=== PATIENT | male | born 1940 | race Caucasian/White ===

== ENCOUNTER 2025-07-09 06:33 | Emergency (ER) | payer OTHER ==
[~2025-07-09] VITALS: Ht 170.2 cm; Wt 72.6 kg
[2025-07-09] MEDS ORDERED: LIDOCAINE 1%-EPI 1:100,000 20 ML VIAL IJ SCH (07:00)
--- NOTE | 2025-07-09 07:14 | NUR ---
ASSUMED PATIENT CARE FROM MAGED LOYOLA AT THIS TIME./ARIELLA
--- NOTE | 2025-07-09 07:17 | NUR ---
DR. MOISE AT BEDSIDE DOING LACERATION REPAIR, PATIENT TOLERATING WELL./ARIELLA
[2025-07-09] MEDS: LIDOCAINE HCL 1% 20 ML VIAL ONE (07:18)
--- NOTE | 2025-07-09 07:32 | ERN ---
General Chief Complaint: Mechanical Fall Stated Complaint: FALL Time Seen by MD: 06:40 Source: patient History of Present Illness Initial Comments Patient is an 84-year-old gentleman coming in after he had a trip and a fall. Per patient he was walking tripped fell down hitting himself in the left side of his head. He did not lose consciousness. He did cause a laceration to the left frontal area of his head. No other current complaint Allergies: Coded Allergies: No Known Drug Allergies (Unverified Allergy, Unknown, 07/09/25) Past Medical History Past Medical History: High Cholesterol, Unknown Past Surgical History: None ROS Dictation CONSTITUTIONAL: No chills, no fever, no weakness, no diaphoresis, no malaise. HEAD/FACE: No signs of trauma. EENT: No eye pain, no blurred vision, no tearing, no double vision, no ear pain, no ear discharge, no nose pain, no nasal congestion, no throat pain, no throat swelling, no mouth pain. RESPIRATORY: No cough, no orthopnea, no SOB, no stridor, no wheezing. CARDIOVASCULAR: No chest pain, no edema, no palpitations, no syncope. GASTROINTESTINAL/ABDOMINAL: No abdominal pain, no constipation, no diarrhea, no nausea, no vomiting. GENITOURINARY: No abnormal discharge, no dysuria, no frequent urination, no hematuria. No complaints of pain in the genitals. MUSCULOSKELETAL: No back pain, no gout, no joint pain, no joint swelling, no muscle pain, no muscle stiffness, no neck pain. INTEGUMENTARY: No change in color, no change in hair/nails, no dryness, lesion, no lumps, no rash. NEUROLOGICAL/PSYCH: No anxiety, not depressed, no emotional problem, no headache, no numbness, no pre-existing deficit, no history of seizures, no tremors, no weakness. HEMATOLOGIC/LYMPHATIC: Not anemic, no history of blood clots, no apparent bleeding, no bruising, glands not swollen. All Systems Negative, Except as Noted. Physical Exam Physical Exam Dictation VITAL SIGNS: Reviewed. GENERAL APPEARANCE: Alert, oriented x3, no acute distress, obese. HEAD AND FACE: Non-traumatic. EYES: PERRL, pink conjunctivas, eyelid no trauma, anterior chamber clear. EARS: Pinnas intact and no signs of trauma or erythema. Ear canals clear and no discharge. TMs no erythema. NOSE: No discharge, no bleeding. OROPHARYNX: Mouth normal, teeth no caries, tongue pink. Pharynx clear, no erythema. Tonsils no exudates, no abscesses noted. Mucous membrane moist. NECK: Supple, non-tender, no thyromegaly, no masses, no JVD, no bruits. BREAST: Deferred. CHEST: No tenderness, no crepitus, no paradoxical movement, no retractions. LUNGS: Clear, well-ventilated, symmetric, no rales, no wheezing, no rhonchi, no stridor, good breath sounds bilaterally. HEART: Regular rate, regular rhythm, no murmur, no gallops. VASCULAR: No peripheral edema. ABDOMEN: Soft, positive bowel sounds, nondistended, no guarding, nontender, no rebound, no masses no hepatomegaly, no splenomegaly, no Valencia's sign, no hernias. RECTAL: Deferred. GENITAL: Deferred. NEUROLOGICAL: Normal speech, gross motor function intact, gross sensory function intact. MUSCULOSKELETAL: Neck nontender, full range of motion, back nontender, full range of motion. EXTREMITIES: Nontender, full range of motion. SKIN: Color pink, dry, no turgor, no rash, right frontal laceration semici rcular shaped 6 cm, no abrasions, no contusions. LYMPHATICS: Deferred. Results Laboratory and Microbiology Labs Reviewed?: Yes EKG/XRAY/US/CT/MRI CT Scan Comment [place] [address] [place] [id number] IMAGING REPORT Signed PATIENT: EL PRICE MR#: [id number] : 1940 SEX: M AGE: 84 LOCATION: [facility] ORDER 0 STATUS: REG REPORT#: [id number] SERVICE REASON: trauma ORDERING PHYSICIAN: NICCI LÓPEZ MD PROCEDURE: HEAD WO - CT HEAD/BRAIN W/O CONTRAST EXAM: CT Head Without IV contrast. CLINICAL HISTORY: trauma TECHNIQUE: Axial computed tomography images of the head/brain without intravenous contrast. COMPARISON: None provided. FINDINGS: BRAIN: No evidence of acute hemorrhage. No mass lesion. No CT evidence for acute territorial infarct. No midline shift or extra-axial collections. 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 VENTRICLES: No hydrocephalus. ORBITS: The orbits are unremarkable. SINUSES AND MASTOIDS: The paranasal sinuses and mastoid air cells are clear. BONES: No fracture. SOFT TISSUES: Soft tissue thickening evident anterolateral to the right globe. IMPRESSION: No acute intracranial abnormality. 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 /[place] DICTATED BY: BRITNEY ARZOLA Jr., MD DATE: 07/09/25932 ELECTRONICALLY SIGNED BY: BRITNEY ARZOLA Jr., MD DATE: 07/09/25932 [facility] MDM: Differential diagnosis: Trip and fall, laceration forehead, head injury, Rationale: Tests considered and ordered secondary to shared decision making include: Previous outside records reviewed: Old ER visits. Risk of complication and/or morbidity or mortality of patient management: None Medications-Per medication reconciliation Need for hospitalization: Patient does not meet criteria for hospitalization. Need for emergency major/minor surgery: No An 84-year-old gentleman coming in. He had a trip and a fall. Patient did suffer a laceration up the of the of the right eyebrow region. 6 cm semicircular which was repaired with six sutures. Patient tolerated procedure well throughout ER visit patient has been stable CT did not disclose acute findings. Compressive dressing was placed patient will be discharged in stable condition. ED Course Orders Procedure Category Date Status Time Ct Head/Brain W/O CT 07/09/25 Resulted Contrast 06:50 Laceration Tray Set CPOE 07/09/25 Transmitted Up (Er) 06:50 Lidocaine 1%-Epi PHA 07/09/25 Complete 1:100,000 (Lidocaine 07:00 Lidocaine Hcl 1% 20ml PHA 07/09/25 Complete Vial (Lidocaine Hc 06:56 Current Medications Medications (Trade) Dose Ordered Sig/Eleonora Route PRN Reason Start Time Stop Time Status Last Admin Dose Admin Lidocaine HCl (Lidocaine HCl 1% 20ml Vial) 20 ml STK-MED ONCE .ROUTE 07/09/25 06:56 07/09/25 06:56 DC Lidocaine/ Epinephrine (Lidocaine 1%-Epi 1:100,000) 20 ml ONCE IJ 07/09/25 07:00 07/09/25 06:52 DC Vital Signs Date Time Temp Pulse Resp B/P (MAP) Pulse Ox O2 Delivery O2 Flow Rate FiO2 07/09/25 07:15 98.1 58 17 144/77 99 Room Air* 0 21 07/09/25 06:50 98.1 63 16 142/79 Room Air 07/09/25 06:49 98.1 63 16 142/79 99 Room Air* 0 21 Laceration/Wound Repair Laceration/Wound Repair : Wound Location: head Wound Length (cm): 6 Wound's Depth, Shape: superficial Wound Explored: clean Irrigated w/ Saline (ccs): 100 Betadine Prep?: Yes Anesthesia: 1% Lidocaine Volume Anesthetic (ccs): 5 Wound Repaired With: sutures Suture Size/Type: 4:0 Number of Sutures: 6 Layer Closure?: Yes Sterile Dressing Applied?: Yes DX & DISP Disposition: Discharge Departure Impression: Primary Impression: Laceration of forehead without complication Additional Impression: Fall with injury Condition: Stable Scripts Cephalexin Monohydrate (Keflex) 500 Mg Cap 1 CAP PO TID for 10 Days, #30 CAP 0 Refills Prov: KARLY MOISE MD 07/09/25 Additional Instructions: FOLLOW-UP WITH PRIMARY CARE PROVIDER IN 1 TO 2 DAYS. TAKE MEDICATIONS DIRECTED HERE IN THE EMERGENCY ROOM. OKAY TO CONTINUE HOME MEDICATIONS UNLESS OTHERWISE DISCUSSED DURING YOUR VISIT IN THE EMERGENCY ROOM TODAY. RETURN TO YOUR NEAREST EMERGENCY ROOM IF SYMPTOMS WORSEN OR IF THERE IS NO IMPROVEMENT. CALL 911 IF YOU NEED IMMEDIATE ASSISTANCE. TAKE TYLENOL [id number] NEEDED AND IF NO CONTRAINDICATIONS ARE PRESENT. INCREASE ORAL HYDRATION. A WOUND CULTURE OR URINE CULTURE WAS ORDERED HERE IN THE EMERGENCY ROOM DEPARTMENT PLEASE FOLLOW-UP WITH PRIMARY CARE PROVIDER AND ADVISE THEM TO GET REPORTS FROM OUR FACILITY. IF YOU HAD ANY SHIRLENE WRAP/SPLINTS THAT WERE APPLIED HERE, PLEASE DO NOT REMOVE THEM UNTIL YOU SEE YOUR PRIMARY CARE OR SPECIALTY. Referrals: Referrals: SELF,REFERRAL (PCP) JOSUE GROVER MD Time of Disposition: 08:54 NICCI LÓPEZ MD Jul 09, 2025 07:32 KARLY MOISE MD Jul 09, 2025 08:41
--- NOTE | 2025-07-09 07:33 | NUR ---
6 STITCHES PLACED TO LACERATION TO THE RIGHT EYE BROW PER DR. MOISE./ARIELLA
--- NOTE | 2025-07-09 07:45 | NUR ---
GUAZE, KERLIX, AND COBAND APPLIED TO WOUND AT THIS TIME, PATIENT TOLERATED WELL./ARIELLA
--- NOTE | 2025-07-09 08:34 | HMCIMG ---
EXAM: CT Head Without IV contrast. CLINICAL HISTORY: trauma TECHNIQUE: Axial computed tomography images of the head/brain without intravenous contrast. COMPARISON: None provided. FINDINGS: BRAIN: No evidence of acute hemorrhage. No mass lesion. No CT evidence for acute territorial infarct. No midline shift or extra-axial collections. 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 VENTRICLES: No hydrocephalus. ORBITS: The orbits are unremarkable. SINUSES AND MASTOIDS: The paranasal sinuses and mastoid air cells are clear. BONES: No fracture. SOFT TISSUES: Soft tissue thickening evident anterolateral to the right globe. IMPRESSION: No acute intracranial abnormality. 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 /[place]
[2025-07-09] MEDS ORDERED: CEPH500B PO (08:55)
[2025-07-09 08:57] VITALS: BP 132/67; PULSE 68; RESP 18; TEMP 98.3; O2SAT 99
--- NOTE | 2025-07-09 09:05 | NUR ---
PRESSURE DRESSING REMOVED AT THIS TIME, BLEEDING CONTROLLED AND NO DRAINAGE PRESENT./ARIELLA
== END 2025-07-09 09:05 | disposition home or self-care (01) ==
LOC: EDH 06:33
DX: S01.81XA Laceration without foreign body of other part of head, initial encounter (principal); E78.00 Pure hypercholesterolemia, unspecified; W01.0XXA Fall on same level from slipping, tripping and stumbling without subsequent striking against object, initial encounter; Y93.01 Activity, walking, marching and hiking; Y92.89 Other specified places as the place of occurrence of the external cause; Y99.8 Other external cause status
CPT/HCPCS: 70450; 99284